=== PATIENT | male | born 1975 ===

== ENCOUNTER 2017-04-05 20:23 | Observation (INO) | payer OTHER ==
--- NOTE | 2017-04-05 21:15 | ED PDOC ---
HPI: Chest Pain Time Seen by Provider: 04/05/17 20:57 Chief Complaint (Nursing): Chest Pain Chief Complaint (Provider): chest pain History Per: Patient History/Exam Limitations: no limitations Onset/Duration Of Symptoms: Hrs (3), Waxing/Waning Current Symptoms Are (Timing): Better Additional History Per: Patient Additional Complaint(s): 41 y/o male history of hypertension, ADHD presents with intermittent chest pain x 3 hours. Patient states he was watching TV when pain presented, described as sharp, located in [id number] side of chest. Patient notes improvement of pain after walking to ED. Denies fever, nausea/vomiting, shortness of breath, palpitations, abdominal pain, leg pain/swelling. Past Medical History Reviewed: Historical Data, Nursing Documentation, Vital Signs Vital Signs: Last Vital Signs Temp 98.5 F 04/05/17 23:57 Pulse 76 04/05/17 23:57 Resp 17 04/05/17 23:57 BP 161/110 H 04/05/17 23:57 Pulse Ox 97 04/05/17 23:57 - Medical History PMH: HTN - Family History Family History: States: Unknown Family Hx - Social History Current smoker - smoking cessation education provided: No Alcohol: None Drugs: Denies - Allergies Allergies/Adverse Reactions: Allergies Allergy/AdvReac Type Severity Reaction Status Date / Time No Known Allergies Allergy Verified 04/05/17 20:25 Review of Systems ROS Statement: Except As Marked, All Systems Reviewed And Found Negative Cardiovascular: Positive for: Chest Pain Physical Exam - Reviewed Nursing Documentation Reviewed: Yes Vital Signs Reviewed: Yes - Physical Exam Appears: Positive for: Well, Non-toxic, No Acute Distress Head Exam: Positive for: ATRAUMATIC, NORMAL INSPECTION, NORMOCEPHALIC Skin: Positive for: Normal Color Eye Exam: Positive for: Normal appearance ENT: Positive for: Normal ENT Inspection Cardiovascular/Chest: Positive for: Regular Rate, Rhythm Respiratory: Positive for: Normal Breath Sounds Gastrointestinal/Abdominal: Positive for: Normal Exam Extremity: Positive for: Normal ROM Neurologic/Psych: Positive for: Alert, Oriented - Laboratory Results Result Diagrams: 04/05/17 21:46 04/05/17 21:46 - ECG ECG: Positive for: Viewed By Me (reviewed by ED attending) ECG Rhythm: Positive for: Sinus Rhythm O2 Sat by Pulse Oximetry: 100 Pulse Ox Interpretation: Normal - Radiology X-Ray: Viewed By Me X-Ray Interpretation: No Acute Disease - Progress ED Course And Treament: labs, ekg, chest xray Case discussed with ED attending Dr. Cloud; will place in observation for chest pain to r/out ACS Case discussed with FP resident on-call, for placement in observation. Disposition - Clinical Impression Clinical Impression: Chest pain - Patient ED Disposition Is Patient to be Admitted: No - Disposition Disposition Time: 00:04 Condition: FAIR
[2017-04-05 21:53] LABS: BASO # 0.1 K/uL (0.0-0.2); BASO % 0.9 % (0.0-2.0); EOS # 0.1 K/uL (0.0-0.7); EOS % 1.5 % (0.0-4.0); HEMATOCRIT 43.8 % (35.0-51.0); LYMPH # 2.9 K/uL (1.0-4.3); MEAN CELL VOLUME 95.6 fl (80.0-94.0); MEAN CORPUSCULAR HEMOGLOBIN 31.8 pg (27.0-31.0); MEAN CORPUSCULAR HGB CONC 33.3 g/dL (33.0-37.0); MONO # 0.6 K/uL (0.0-0.8); MONO % 7.7 % (0.0-10.0); NEUT # 3.8 K/uL (1.8-7.0); NEUT % 50.9 % (50.0-75.0); NRBC % 0.1 % (0.0-0.0); RED CELL DISTRIBUTION WIDTH 13.1 % (11.5-14.5); WHITE BLOOD COUNT 7.5 K/uL (4.8-10.8)
[2017-04-05 22:07] LABS: ALB/GLOB RATIO 1.6 (1.0-2.1); ALKALINE PHOSPHATASE 44 U/L (38-126); ALT/SGPT 66 U/L (21-72); AST/SGOT 30 U/L (17-59); BILIRUBIN,TOTAL 0.4 mg/dl (0.2-1.3); BLOOD UREA NITROGEN 23 mg/dl (9-20); CALCIUM 9.5 mg/dL (8.4-10.2); CARBON DIOXIDE 27 mmol/L (22-30); CHLORIDE 103 mmol/L (98-107); GFR AFRICAN-AMERICAN > 60; GLUCOSE,RANDOM 116 mg/dL (75-110); POTASSIUM 3.4 MMOL/L (3.6-5.0); SODIUM 142 mmol/l (132-148); TOTAL PROTEIN 7.3 G/DL (6.3-8.2)
--- NOTE | 2017-04-06 00:37 | CP.PCM.HP ---
<Lemuel Quinn F - Last Filed: 04/06/17 00:37> History of Present Illness - History of Present Illness History of Present Illness: CC: right sided acute chest pain x 3 hrs 41 y/o male history of hypertension admitted for acute intermittent chest pain x 3 hours. Patient states he was watching TV when pain presented, described as sharp, located in [id number] side of chest. No previous such episodes. Patient notes improvement of pain after walking to ED. Denies fever, c/nausea/vomiting, shortness of breath, palpitations, abdominal pain, leg pain/swelling/focal weakness/no incontinence. No recent sick contacts. PMD: Dr Vickers PMH: as above Meds: see reconciled list Allergies: NKDA ED Course: labs, ekg, chest xray Present on Admission - Present on Admission Any Indicators Present on Admission: No Review of Systems - Review of Systems Review of Systems: see hpi Past Patient History - Past Social History Alcohol: None Drugs: Denies - CARDIAC Hx Hypertension: Yes Meds Allergies/Adverse Reactions: Allergies Allergy/AdvReac Type Severity Reaction Status Date / Time No Known Allergies Allergy Verified 04/05/17 20:25 Physical Exam - Constitutional Appears: Non-toxic, No Acute Distress - Head Exam Head Exam: ATRAUMATIC - Eye Exam Eye Exam: EOMI Pupil Exam: PERRL - ENT Exam ENT Exam: Mucous Membranes Moist - Neck Exam Neck exam: Positive for: Full Rom. Negative for: Tenderness - Respiratory Exam Respiratory Exam: Clear to Auscultation Bilateral. absent: Rales, Rhonchi, Wheezes - Cardiovascular Exam Cardiovascular Exam: +S1, +S2 - GI/Abdominal Exam GI & Abdominal Exam: Normal Bowel Sounds, Soft. absent: Tenderness - Extremities Exam Extremities exam: Positive for: normal inspection. Negative for: calf tenderness, pedal edema, tenderness - Neurological Exam Neurological exam: Alert, Oriented x3 - Psychiatric Exam Psychiatric exam: Normal Affect, Normal Mood - Skin Skin Exam: Normal Color, Warm Results - Vital Signs Recent Vital Signs: Last Vital Signs Temp 98.5 F 04/05/17 23:57 Pulse 76 04/05/17 23:57 Resp 17 04/05/17 23:57 BP 140/100 H 04/06/17 00:20 Pulse Ox 100 04/06/17 00:04 - Labs Result Diagrams: 04/05/17 21:46 04/05/17 21:46 Labs: Laboratory Results - last 24 hr 04/05/17 04/05/17 21:46 21:46 WBC 7.5 RBC 4.59 Hgb 14.6 Hct 43.8 MCV 95.6 H MCH 31.8 H MCHC 33.3 RDW 13.1 Plt Count 231 MPV 8.0 Neut % (Auto) 50.9 Lymph % (Auto) 39.0 [place] % (Auto) 7.7 Eos % (Auto) 1.5 Baso % (Auto) 0.9 Neut # 3.8 Lymph # 2.9 [place] # 0.6 Eos # 0.1 Baso # 0.1 Sodium 142 Potassium 3.4 L Chloride 103 Carbon Dioxide 27 Anion Gap 15 BUN 23 H Creatinine 1.0 Est GFR ( Amer) > 60 Est GFR (Non-Af Amer) > 60 Random Glucose 116 H Calcium 9.5 Total Bilirubin 0.4 AST 30 ALT 66 Alkaline Phosphatase 44 Troponin I < 0.0120 Total Protein 7.3 Albumin 4.5 Globulin 2.9 Albumin/Globulin Ratio 1.6 Assessment & Plan - Assessment and Plan (Free Text) Plan: 41 y/o male history of hypertension admitted for acute intermittent chest pain x 3 hours. Acute Chest Pain r/o ACS EKG WNL Trop Q8 x 3; #1 negative admit to telemetry cardiac catheterization technician aspirin HTN c/w HCTZ PPx DVT - SCDs, ambulates w/o restriction <Chriss Vickers - Last Filed: 04/06/17 06:40> Results - Vital Signs Recent Vital Signs: Last Vital Signs Temp 98.3 F 04/06/17 05:00 Pulse 68 04/06/17 05:00 Resp 20 04/06/17 05:00 BP 121/78 04/06/17 05:00 Pulse Ox 98 04/06/17 05:00 - Labs Result Diagrams: 04/05/17 21:46 04/05/17 21:46 Labs: Laboratory Results - last 24 hr 04/06/17 02:05 Urine Opiates Screen Negative Urine Methadone Screen Negative Ur Barbiturates Screen Negative Ur Phencyclidine Scrn Negative Ur Amphetamines Screen Positive H U Benzodiazepines Scrn Negative U Oth Cocaine Metabols Negative U Cannabinoids Screen Negative Attending/Attestation - Attestation I have personally seen and examined this patient.: Yes I have fully participated in the care of the patient.: Yes I have reviewed all pertinent clinical information: Yes
[2017-04-06 05:09] VITALS: O2SAT 98
[2017-04-06] MEDS ORDERED: Pneumococcal 23-Valent Vaccine IM ONE (06:30)
[2017-04-06] MEDS ORDERED: Potassium Chloride 20 mEq ER Tab PO ONE (06:48)
[2017-04-06 07:40] LABS: BASO # 0.1 K/uL (0.0-0.2); EOS # 0.2 K/uL (0.0-0.7); EOS % 2.9 % (0.0-4.0); HEMATOCRIT 43.2 % (35.0-51.0); LYMPH # 2.5 K/uL (1.0-4.3); LYMPH % 38.8 % (20.0-40.0); MEAN CELL VOLUME 95.6 fl (80.0-94.0); MEAN CORPUSCULAR HEMOGLOBIN 32.6 pg (27.0-31.0); MEAN CORPUSCULAR HGB CONC 34.1 g/dL (33.0-37.0); MEAN PLATELET VOLUME 8.3 fl (7.2-11.7); MONO # 0.6 K/uL (0.0-0.8); MONO % 9.3 % (0.0-10.0); NRBC % 0.1 % (0.0-0.0); RED CELL DISTRIBUTION WIDTH 13.2 % (11.5-14.5); WHITE BLOOD COUNT 6.3 K/uL (4.8-10.8)
[2017-04-06 07:45] LABS: ALB/GLOB RATIO 1.5 (1.0-2.1); ALKALINE PHOSPHATASE 46 U/L (38-126); ALT/SGPT 69 U/L (21-72); AST/SGOT 37 U/L (17-59); BILIRUBIN,TOTAL 0.6 mg/dl (0.2-1.3); BLOOD UREA NITROGEN 23 mg/dl (9-20); CALCIUM 9.1 mg/dL (8.4-10.2); CARBON DIOXIDE 28 mmol/L (22-30); CHLORIDE 104 mmol/L (98-107); GFR AFRICAN-AMERICAN > 60; GLUCOSE,RANDOM 102 mg/dL (75-110); POTASSIUM 3.8 MMOL/L (3.6-5.0); SODIUM 142 mmol/l (132-148); TOTAL PROTEIN 7.2 G/DL (6.3-8.2)
--- NOTE | 2017-04-06 08:07 | RAD ---
HISTORY: chest pain COMPARISON: No prior. TECHNIQUE: Chest PA and lateral FINDINGS: LUNGS: No active pulmonary disease. PLEURA: No significant pleural effusion identified. No pneumothorax apparent. CARDIOVASCULAR: Normal. OSSEOUS STRUCTURES: No significant abnormalities. VISUALIZED UPPER ABDOMEN: Normal. OTHER FINDINGS: None. IMPRESSION: No active disease.
[2017-04-06] MEDS ORDERED: BIOTIN 7500 MCG PO SCH (09:00)
[2017-04-06] MEDS ORDERED: Omega-3-Acid Ethyl Esters 1 GM Cap PO SCH (09:00)
[2017-04-06] MEDS ORDERED: LISDEXAMFETAMINE DIMESYLATE 60 MG PO SCH (09:00)
--- NOTE | 2017-04-06 10:09 | CARD ---
APPROVED REPORT EKG Measurement Heart [id number] <Conclusion> Normal sinus rhythm Possible Left atrial enlargement Incomplete right bundle branch block Borderline ECG
--- NOTE | 2017-04-06 10:50 | CP.PCM.DIS ---
<SundarAbe - Last Filed: 04/06/17 10:54> Provider - Provider Date of Admission: 04/05/17 23:45 Attending physician: René Burger MD Primary care physician: Dr Burger Consults: Dr Harley(Cardiology) Time Spent in preparation of Discharge (in minutes): 30 Diagnosis - Discharge Diagnosis (1) Chest pain Status: Resolved Comment: Resolved. F/U with cardiology as outpatient. Hospital Course - Lab Results Lab Results: Most Recent Lab Values WBC 6.3 K/uL (4.8-10.8) 04/06/17 06:20 RBC 4.52 Mil/uL (4.40-5.90) 04/06/17 06:20 Hgb 14.8 g/dL (12.0-18.0) 04/06/17 06:20 Hct 43.2 % (35.0-51.0) 04/06/17 06:20 MCV 95.6 fl (80.0-94.0) H 04/06/17 06:20 MCH 32.6 pg (27.0-31.0) H 04/06/17 06:20 MCHC 34.1 g/dL (33.0-37.0) 04/06/17 06:20 RDW 13.2 % (11.5-14.5) 04/06/17 06:20 Plt Count 224 K/uL (130-400) 04/06/17 06:20 MPV 8.3 fl (7.2-11.7) 04/06/17 06:20 Neut % (Auto) 48.0 % (50.0-75.0) L 04/06/17 06:20 Lymph % (Auto) 38.8 % (20.0-40.0) 04/06/17 06:20 [place] % (Auto) 9.3 % (0.0-10.0) 04/06/17 06:20 Eos % (Auto) 2.9 % (0.0-4.0) 04/06/17 06:20 Baso % (Auto) 1.0 % (0.0-2.0) 04/06/17 06:20 Neut # 3.0 K/uL (1.8-7.0) 04/06/17 06:20 Lymph # 2.5 K/uL (1.0-4.3) 04/06/17 06:20 [place] # 0.6 K/uL (0.0-0.8) 04/06/17 06:20 Eos # 0.2 K/uL (0.0-0.7) 04/06/17 06:20 Baso # 0.1 K/uL (0.0-0.2) 04/06/17 06:20 Sodium 142 mmol/l (132-148) 04/06/17 06:20 Potassium 3.8 MMOL/L (3.6-5.0) 04/06/17 06:20 Chloride 104 mmol/L (98-107) 04/06/17 06:20 Carbon Dioxide 28 mmol/L (22-30) 04/06/17 06:20 Anion Gap 15 (10-20) 04/06/17 06:20 BUN 23 mg/dl (9-20) H 04/06/17 06:20 Creatinine 1.0 mg/dL (0.8-1.5) 04/06/17 06:20 Est GFR ( Amer) > 60 04/06/17 06:20 Est GFR (Non-Af Amer) > 60 04/06/17 06:20 Random Glucose 102 mg/dL (75-110) 04/06/17 06:20 Calcium 9.1 mg/dL (8.4-10.2) 04/06/17 06:20 Magnesium 2.1 MG/DL (1.6-2.3) 04/06/17 06:46 Total Bilirubin 0.6 mg/dl (0.2-1.3) 04/06/17 06:20 AST 37 U/L (17-59) 04/06/17 06:20 ALT 69 U/L (21-72) 04/06/17 06:20 Alkaline Phosphatase 46 U/L (38-126) 04/06/17 06:20 Troponin I < 0.0120 ng/mL (0.00-0.120) 04/06/17 06:20 Total Protein 7.2 G/DL (6.3-8.2) 04/06/17 06:20 Albumin 4.3 g/dL (3.5-5.0) 04/06/17 06:20 Globulin 2.9 gm/dL (2.2-3.9) 04/06/17 06:20 Albumin/Globulin Ratio 1.5 (1.0-2.1) 04/06/17 06:20 Urine Opiates Screen Negative (NEGATIVE) 04/06/17 02:05 Urine Methadone Screen Negative (NEGATIVE) 04/06/17 02:05 Ur Barbiturates Screen Negative (NEGATIVE) 04/06/17 02:05 Ur Phencyclidine Scrn Negative (NEGATIVE) 04/06/17 02:05 Ur Amphetamines Screen Positive (NEGATIVE) H 04/06/17 02:05 U Benzodiazepines Scrn Negative (NEGATIVE) 04/06/17 02:05 U Oth Cocaine Metabols Negative (NEGATIVE) 04/06/17 02:05 U Cannabinoids Screen Negative (NEGATIVE) 04/06/17 02:05 - Hospital Course Hospital Course: 41 y/o with PMHx of HTN presented to ED last night c/o CP that started after a heavy meal at [facility]. Patient was admitted for observation to rule out ACS. Troponin x2 neg. EKG done at ED shows possible RBBB. Patient seen this morning in not acute distress, denies CP, palpitations, SOB, paresthesias. Patient was positive for amphetamines and according to patient he has been taking PRN Vyvanse as outpatient. Patient has been seen by Dr Harley([facility] in 2013). Case discussed with Dr Harley this morning who checked previous notes and EKG done in this admission is unchanged from the one in 2014 and patient is cleared by him for DC and f/u as outpatient. Discharge Exam - Head Exam Head Exam: ATRAUMATIC - Eye Exam Eye Exam: PERRL - Respiratory Exam Respiratory Exam: Clear to PA & Lateral, NORMAL BREATHING PATTERN - Cardiovascular Exam Cardiovascular Exam: REGULAR RHYTHM, +S1, +S2. absent: Gallop - GI/Abdominal Exam GI & Abdominal Exam: Normal Bowel Sounds, Unremarkable - Extremities Exam Extremities exam: normal inspection - Neurological Exam Neurological exam: Alert, CN II-XII Intact, Normal Gait, Oriented x3 - Psychiatric Exam Psychiatric exam: Normal Affect, Normal Mood - Skin Skin Exam: Normal Color, Warm Discharge Plan - Follow Up Plan Condition: FAIR Disposition: HOME/ ROUTINE Instructions: Chest Pain (DC) Additional Instructions: F/U with Dr Harley [facility] within 1 week F/U with PMD Dr Burger/Alee in 1 week Return to ED if CP, SOB, palpitations or any other concerns. <Chriss Vickers - Last Filed: 04/06/17 15:26> Provider - Provider Date of Admission: 04/05/17 23:45 Attending physician: René Burger MD Hospital Course - Lab Results Lab Results: Most Recent Lab Values WBC 6.3 K/uL (4.8-10.8) 04/06/17 06:20 RBC 4.52 Mil/uL (4.40-5.90) 04/06/17 06:20 Hgb 14.8 g/dL (12.0-18.0) 04/06/17 06:20 Hct 43.2 % (35.0-51.0) 04/06/17 06:20 MCV 95.6 fl (80.0-94.0) H 04/06/17 06:20 MCH 32.6 pg (27.0-31.0) H 04/06/17 06:20 MCHC 34.1 g/dL (33.0-37.0) 04/06/17 06:20 RDW 13.2 % (11.5-14.5) 04/06/17 06:20 Plt Count 224 K/uL (130-400) 04/06/17 06:20 MPV 8.3 fl (7.2-11.7) 04/06/17 06:20 Neut % (Auto) 48.0 % (50.0-75.0) L 04/06/17 06:20 Lymph % (Auto) 38.8 % (20.0-40.0) 04/06/17 06:20 [place] % (Auto) 9.3 % (0.0-10.0) 04/06/17 06:20 Eos % (Auto) 2.9 % (0.0-4.0) 04/06/17 06:20 Baso % (Auto) 1.0 % (0.0-2.0) 04/06/17 06:20 Neut # 3.0 K/uL (1.8-7.0) 04/06/17 06:20 Lymph # 2.5 K/uL (1.0-4.3) 04/06/17 06:20 [place] # 0.6 K/uL (0.0-0.8) 04/06/17 06:20 Eos # 0.2 K/uL (0.0-0.7) 04/06/17 06:20 Baso # 0.1 K/uL (0.0-0.2) 04/06/17 06:20 Sodium 142 mmol/l (132-148) 04/06/17 06:20 Potassium 3.8 MMOL/L (3.6-5.0) 04/06/17 06:20 Chloride 104 mmol/L (98-107) 04/06/17 06:20 Carbon Dioxide 28 mmol/L (22-30) 04/06/17 06:20 Anion Gap 15 (10-20) 04/06/17 06:20 BUN 23 mg/dl (9-20) H 04/06/17 06:20 Creatinine 1.0 mg/dL (0.8-1.5) 04/06/17 06:20 Est GFR ( Amer) > 60 04/06/17 06:20 Est GFR (Non-Af Amer) > 60 04/06/17 06:20 Random Glucose 102 mg/dL (75-110) 04/06/17 06:20 Calcium 9.1 mg/dL (8.4-10.2) 04/06/17 06:20 Magnesium 2.1 MG/DL (1.6-2.3) 04/06/17 06:46 Total Bilirubin 0.6 mg/dl (0.2-1.3) 04/06/17 06:20 AST 37 U/L (17-59) 04/06/17 06:20 ALT 69 U/L (21-72) 04/06/17 06:20 Alkaline Phosphatase 46 U/L (38-126) 04/06/17 06:20 Troponin I < 0.0120 ng/mL (0.00-0.120) 04/06/17 06:20 Total Protein 7.2 G/DL (6.3-8.2) 04/06/17 06:20 Albumin 4.3 g/dL (3.5-5.0) 04/06/17 06:20 Globulin 2.9 gm/dL (2.2-3.9) 04/06/17 06:20 Albumin/Globulin Ratio 1.5 (1.0-2.1) 04/06/17 06:20 Urine Opiates Screen Negative (NEGATIVE) 04/06/17 02:05 Urine Methadone Screen Negative (NEGATIVE) 04/06/17 02:05 Ur Barbiturates Screen Negative (NEGATIVE) 04/06/17 02:05 Ur Phencyclidine Scrn Negative (NEGATIVE) 04/06/17 02:05 Ur Amphetamines Screen Positive (NEGATIVE) H 04/06/17 02:05 U Benzodiazepines Scrn Negative (NEGATIVE) 04/06/17 02:05 U Oth Cocaine Metabols Negative (NEGATIVE) 04/06/17 02:05 U Cannabinoids Screen Negative (NEGATIVE) 04/06/17 02:05 Attending/Attestation - Attestation I have personally seen and examined this patient.: Yes I have fully participated in the care of the patient.: Yes I have reviewed all pertinent clinical information, including history, physical exam and plan: Yes
[2017-04-06 12:56] VITALS: BP 136/93; PULSE 75; RESP 20; TEMP 97.9
== END 2017-04-06 14:08 | disposition home or self-care (01) ==
LOC: H.ER 20:23 → H.ERHOLD 23:45 → H.TEL 04-06 02:15
PROVIDERS: ADMIT Family Medicine; ATTEND Family Medicine
DX: R07.9 Chest pain, unspecified (principal); F90.9 Attention-deficit hyperactivity disorder, unspecified type; I10 Essential (primary) hypertension; Z23 Encounter for immunization